=== PATIENT | male | born 1940 | race Caucasian/White ===

== ENCOUNTER 2017-10-10 14:32 | Inpatient (IN) | payer MEDICARE, MEDICAID ==
[~2017-10-10] VITALS: Ht 170.2 cm; Wt 59.2 kg
[2017-10-10] MEDS ORDERED: ASPIRIN 81 MG TABLET CHEW ONE (15:24)
[2017-10-10] MEDS ORDERED: ALBUTEROL/IPRATROPIUM 2.5MG/0.5MG, 3 ML ONE ×2 (15:30→22:35)
[2017-10-10] MEDS ORDERED: ALBUTEROL/IPRATROPIUM 2.5MG/0.5MG, 3 ML NPPB ONE (15:30)
[2017-10-10] MEDS ORDERED: ASPIRIN 81 MG TABLET CHEW PO ONE (15:30)
[2017-10-10] MEDS ORDERED: SODIUM CHLORIDE FLUSH 10ML SYR IVF ONE (15:30)
[2017-10-10 15:46] LABS: BASOPHILS # (AUTO) 0.05 x10^3/uL (0-0.1); BASOPHILS % (AUTO) 1 % (0-1); EOSINOPHILS % (AUTO) 2 % (1-7); LYMPHOCYTES # (AUTO) 2.98 x10^3/uL (1-3.4); LYMPHOCYTES % (AUTO) 29 % (22-44); MD NO; MEAN CORPUSCULAR HEMOGLOBIN 29.3 pg (27.5-34.5); MEAN CORPUSCULAR HGB CONC 32.7 g/dL (33.2-36.2); MEAN CORPUSCULAR VOLUME 89.5 fL (81-97); MEAN PLATELET VOLUME 9.1 fL (7.4-10.4); MONOCYTES # (AUTO) 0.52 x10^3/uL (0.2-0.8); MONOCYTES % (AUTO) 5 % (2-9); NEUTROPHILS # (AUTO) 6.72 x10^3/uL (1.8-6.8); NEUTROPHILS % (AUTO) 64 % (42-75); PLATELET COUNT 258 x10^3/uL (130-400); RED BLOOD COUNT 6.02 x10^6/uL (4.38-5.82); RED CELL DISTRIBUTION WIDTH 14.9 % (9.4-14.8)
[2017-10-10 15:56] LABS: ALBUMIN 3.7 g/dL (3.4-5.0); ANION GAP 3 mmol/L (5-15); CALCIUM 8.6 mg/dL (8.5-10.1); CHLORIDE 107 mmol/L (98-107)
[2017-10-10] MEDS ORDERED: methylPREDNISolone SOD SUCC 125 MG/2 ML IVP ONE (16:00)
[2017-10-10 16:03] LABS: CREATININE 0.88 mg/dL (0.7-1.3); TROPONIN I < 0.015 ng/mL (0.000-0.045)
[2017-10-10] MEDS ORDERED: methylPREDNISolone SOD SUCC 125 MG/2 ML ONE (16:09)
[2017-10-10] MEDS ORDERED: CEFTRIAXONE PMX 1GM/50ML 50 ML ONE (17:24)
[2017-10-10] MEDS ORDERED: CEFTRIAXONE PMX 1GM/50ML 50 ML IVPB ONE (17:30)
[2017-10-10] MEDS ORDERED: AZITHROMYCIN 500 MG in SODIUM CHLORIDE 0.9% 250 ML IVPB ONE (17:30)
[2017-10-10] MEDS ORDERED: SODIUM CHLORIDE FLUSH 10ML SYR IVF PRN (18:00)
[2017-10-10] MEDS: AZITHROMYCIN 500 MG in SODIUM CHLORIDE 0.9% 250 ML IV SCH (18:30)
[2017-10-10] MEDS ORDERED: GUAIFENESIN/DM 200-20MG, 10ML UDC PO PRN (18:30)
[2017-10-10] MEDS: methylPREDNISolone SOD SUCC 125 MG/2 ML IVPush SCH (18:30)
[2017-10-10] MEDS ORDERED: ONDANSETRON 2MG/ML, 2ML IVPush PRN (18:30)
[2017-10-10] MEDS ORDERED: POLYETHYLENE GLYCOL 17 GM PACKET PO PRN (18:30)
[2017-10-10] MEDS ORDERED: hydrALAzine 20 MG/ML, 1ML IVPush PRN (18:30)
[2017-10-10] MEDS: CEFTRIAXONE PMX 1GM/50ML 50 ML IV SCH (18:30)
[2017-10-10] MEDS ORDERED: BISACODYL 10 MG SUPP PR PRN (18:30)
[2017-10-10] MEDS ORDERED: NICOTINE 21 MG/24 HR PATCH.TD24 ONE (19:50)
[2017-10-10] MEDS ORDERED: HEPARIN 5,000 UNITS/ML, 1ML ONE (19:50)
[2017-10-10] MEDS: HEPARIN 5,000 UNITS/ML, 1ML SQ SCH (19:52)
[2017-10-10] MEDS: NICOTINE 21 MG/24 HR PATCH.TD24 TD SCH (19:53)
[2017-10-10] MEDS ORDERED: ALBUTEROL/IPRATROPIUM 2.5MG/0.5MG, 3 ML NPPB PRN (20:00)
[2017-10-10] MEDS ORDERED: ALBUTEROL/IPRATROPIUM 2.5MG/0.5MG, 3 ML NPPB SCH (20:00)
[2017-10-10] MEDS: SODIUM CHLORIDE FLUSH 10ML SYR IVF SCH (20:41)
[2017-10-10] MEDS: ALBUTEROL/IPRATROPIUM 2.5MG/0.5MG, 3 ML NPPB SCH (22:00)
[2017-10-10 23:55] VITALS: BP 168/82
[2017-10-11] MEDS: methylPREDNISolone SOD SUCC 125 MG/2 ML IVPush SCH (01:01)
[2017-10-11] MEDS ORDERED: ALBU18HF INH (02:57)
[2017-10-11] MEDS ORDERED: BUDE10.2 INH (02:58)
[2017-10-11] MEDS: HEPARIN 5,000 UNITS/ML, 1ML SQ SCH ×3 (04:13→21:42)
[2017-10-11 04:15] VITALS: BP 148/77
[2017-10-11 04:50] LABS: BASOPHILS # (AUTO) 0.02 x10^3/uL (0-0.1); BASOPHILS % (AUTO) 0 % (0-1); EOSINOPHILS % (AUTO) 0 % (1-7); LYMPHOCYTES # (AUTO) 1.41 x10^3/uL (1-3.4); LYMPHOCYTES % (AUTO) 16 % (22-44); MD NO; MEAN CORPUSCULAR HEMOGLOBIN 29.6 pg (27.5-34.5); MEAN CORPUSCULAR HGB CONC 33.4 g/dL (33.2-36.2); MEAN CORPUSCULAR VOLUME 88.8 fL (81-97); MEAN PLATELET VOLUME 9.1 fL (7.4-10.4); MONOCYTES # (AUTO) 0.05 x10^3/uL (0.2-0.8); MONOCYTES % (AUTO) 1 % (2-9); NEUTROPHILS # (AUTO) 7.55 x10^3/uL (1.8-6.8); NEUTROPHILS % (AUTO) 84 % (42-75); PLATELET COUNT 288 x10^3/uL (130-400); RED BLOOD COUNT 5.66 x10^6/uL (4.38-5.82); RED CELL DISTRIBUTION WIDTH 14.6 % (9.4-14.8)
[2017-10-11 05:02] LABS: CHLORIDE 106 mmol/L (98-107)
[2017-10-11 05:07] LABS: ALANINE AMINOTRANSFERASE 15 U/L (12-78); ALBUMIN 3.3 g/dL (3.4-5.0); ALKALINE PHOSPHATASE 97 U/L (45-117); ANION GAP 6 mmol/L (5-15); BILIRUBIN,TOTAL 0.3 mg/dL (0.2-1.0); CALCIUM 8.8 mg/dL (8.5-10.1); CREATININE 0.86 mg/dL (0.7-1.3); TOTAL PROTEIN 7.1 g/dL (6.4-8.2)
[2017-10-11] MEDS: ALBUTEROL/IPRATROPIUM 2.5MG/0.5MG, 3 ML NPPB SCH ×5 (06:47→23:20)
[2017-10-11 07:20] VITALS: BP 156/84
[2017-10-11] MEDS: SODIUM CHLORIDE FLUSH 10ML SYR IVF SCH ×2 (09:59→21:42)
[2017-10-11] MEDS: SENNA/DOCUSATE TABLET PO SCH (10:00)
[2017-10-11] MEDS: FLUTICASONE/VILANTEROL 100-25MCG/INH INH SCH (10:00)
[2017-10-11] MEDS: ACETAMINOPHEN 325 MG TABLET PO PRN (10:05)
[2017-10-11 15:07] VITALS: BP 171/69
[2017-10-11] MEDS: CEFTRIAXONE PMX 1GM/50ML 50 ML IV SCH (18:04)
[2017-10-11] MEDS: AZITHROMYCIN 500 MG in SODIUM CHLORIDE 0.9% 250 ML IV SCH (18:56)
[2017-10-11] MEDS: NICOTINE 21 MG/24 HR PATCH.TD24 TD SCH (18:57)
[2017-10-11 21:30] VITALS: BP 166/76
[2017-10-12 01:40] VITALS: BP 152/85
[2017-10-12] MEDS: DIPHENHYDRAMINE 50 MG CAPSULE PO PRN ×2 (01:46→21:11)
[2017-10-12] MEDS: HEPARIN 5,000 UNITS/ML, 1ML SQ SCH ×3 (05:33→21:12)
[2017-10-12] MEDS: ALBUTEROL/IPRATROPIUM 2.5MG/0.5MG, 3 ML NPPB SCH ×3 (07:50→20:20)
[2017-10-12 08:15] VITALS: BP 162/60
[2017-10-12] MEDS: SENNA/DOCUSATE TABLET PO SCH (08:46)
[2017-10-12] MEDS: SODIUM CHLORIDE FLUSH 10ML SYR IVF SCH ×2 (08:46→21:00)
[2017-10-12 14:17] VITALS: BP 146/72
[2017-10-12] MEDS ORDERED: AZIT500T5 PO (14:27)
[2017-10-12] MEDS ORDERED: ACET325T14 PO (14:27)
[2017-10-12] MEDS ORDERED: GUAI200T3 PO (14:27)
[2017-10-12] MEDS ORDERED: CEFD300C37 PO (14:27)
[2017-10-12] MEDS ORDERED: PRED20TA PO (14:27)
[2017-10-12] MEDS: FLUTICASONE/VILANTEROL 100-25MCG/INH INH SCH (16:44)
[2017-10-12 18:30] VITALS: BP 159/69
[2017-10-12] MEDS: NICOTINE 21 MG/24 HR PATCH.TD24 TD SCH (18:30)
[2017-10-12] MEDS: CEFDINIR 300 MG CAPSULE PO SCH (21:12)
[2017-10-13 00:26] VITALS: BP 161/69
[2017-10-13] MEDS: ALBUTEROL/IPRATROPIUM 2.5MG/0.5MG, 3 ML NPPB SCH ×6 (01:00→23:02)
[2017-10-13] MEDS: HEPARIN 5,000 UNITS/ML, 1ML SQ SCH ×3 (05:12→21:50)
[2017-10-13 07:31] VITALS: BP 151/73
[2017-10-13] MEDS: SODIUM CHLORIDE FLUSH 10ML SYR IVF SCH ×2 (08:21→21:48)
[2017-10-13] MEDS: SENNA/DOCUSATE TABLET PO SCH (08:21)
[2017-10-13] MEDS: AZITHROMYCIN 500 MG TABLET PO SCH (08:21)
[2017-10-13] MEDS: FLUTICASONE/VILANTEROL 100-25MCG/INH INH SCH (08:21)
[2017-10-13] MEDS: CEFDINIR 300 MG CAPSULE PO SCH ×2 (08:21→21:49)
[2017-10-13 13:24] VITALS: BP 178/66
[2017-10-13] MEDS: NICOTINE 21 MG/24 HR PATCH.TD24 TD SCH (18:30)
[2017-10-13 19:04] VITALS: BP 165/80
[2017-10-14 00:59] VITALS: BP 156/63
[2017-10-14] MEDS: HEPARIN 5,000 UNITS/ML, 1ML SQ SCH ×3 (05:33→21:50)
[2017-10-14] MEDS: ACETAMINOPHEN 325 MG TABLET PO PRN ×2 (05:38→21:50)
[2017-10-14] MEDS: ALBUTEROL/IPRATROPIUM 2.5MG/0.5MG, 3 ML NPPB SCH ×4 (06:00→19:36)
[2017-10-14 07:09] VITALS: BP 184/84
[2017-10-14] MEDS: SENNA/DOCUSATE TABLET PO SCH (07:45)
[2017-10-14] MEDS: FLUTICASONE/VILANTEROL 100-25MCG/INH INH SCH (07:46)
[2017-10-14] MEDS: CEFDINIR 300 MG CAPSULE PO SCH (07:46)
[2017-10-14] MEDS: SODIUM CHLORIDE FLUSH 10ML SYR IVF SCH ×2 (07:46→21:51)
[2017-10-14] MEDS: AZITHROMYCIN 500 MG TABLET PO SCH (07:47)
[2017-10-14 12:52] VITALS: BP 158/71
[2017-10-14] MEDS: CEFTAZIDIME 2,000 MG in DEXTROSE 5% 50 ML IV SCH (16:54)
[2017-10-14] MEDS: NICOTINE 21 MG/24 HR PATCH.TD24 TD SCH (19:25)
[2017-10-14 20:47] VITALS: BP 169/82
[2017-10-15 00:47] VITALS: BP 143/64
[2017-10-15] MEDS: CEFTAZIDIME 2,000 MG in DEXTROSE 5% 50 ML IV SCH ×3 (00:51→16:02)
[2017-10-15 04:48] LABS: ANION GAP 4 mmol/L (5-15); CALCIUM 8.5 mg/dL (8.5-10.1); CHLORIDE 104 mmol/L (98-107); CREATININE 0.76 mg/dL (0.7-1.3)
[2017-10-15 04:59] LABS: BASOPHILS # (AUTO) 0.05 x10^3/uL (0-0.1); BASOPHILS % (AUTO) 0 % (0-1); EOSINOPHILS # (AUTO) 0.09 x10^3/uL (0-0.4); EOSINOPHILS % (AUTO) 1 % (1-7); LYMPHOCYTES # (AUTO) 3.15 x10^3/uL (1-3.4); LYMPHOCYTES % (AUTO) 26 % (22-44); MD NO; MEAN CORPUSCULAR HEMOGLOBIN 29.5 pg (27.5-34.5); MEAN CORPUSCULAR HGB CONC 33.1 g/dL (33.2-36.2); MEAN CORPUSCULAR VOLUME 89.2 fL (81-97); MEAN PLATELET VOLUME 8.9 fL (7.4-10.4); MONOCYTES # (AUTO) 0.98 x10^3/uL (0.2-0.8); MONOCYTES % (AUTO) 8 % (2-9); NEUTROPHILS # (AUTO) 8.06 x10^3/uL (1.8-6.8); NEUTROPHILS % (AUTO) 65 % (42-75); PLATELET COUNT 269 x10^3/uL (130-400); RED BLOOD COUNT 5.51 x10^6/uL (4.38-5.82); RED CELL DISTRIBUTION WIDTH 14.9 % (9.4-14.8)
[2017-10-15] MEDS: ALBUTEROL/IPRATROPIUM 2.5MG/0.5MG, 3 ML NPPB SCH ×4 (06:00→19:49)
[2017-10-15] MEDS: HEPARIN 5,000 UNITS/ML, 1ML SQ SCH ×3 (06:33→22:26)
[2017-10-15 06:40] VITALS: BP 142/83
[2017-10-15] MEDS: SENNA/DOCUSATE TABLET PO SCH (08:10)
[2017-10-15] MEDS: AZITHROMYCIN 500 MG TABLET PO SCH (08:10)
[2017-10-15] MEDS: FLUTICASONE/VILANTEROL 100-25MCG/INH INH SCH (08:10)
[2017-10-15] MEDS: BENAZEPRIL 10 MG TABLET PO SCH (08:10)
[2017-10-15] MEDS: SODIUM CHLORIDE FLUSH 10ML SYR IVF SCH ×2 (08:11→22:26)
[2017-10-15 14:03] VITALS: BP 109/64
[2017-10-15] MEDS: NICOTINE 21 MG/24 HR PATCH.TD24 TD SCH (16:02)
[2017-10-15 18:38] VITALS: BP 133/61
[2017-10-15] MEDS: ACETAMINOPHEN 325 MG TABLET PO PRN (19:27)
[2017-10-16] MEDS: CEFTAZIDIME 2,000 MG in DEXTROSE 5% 50 ML IV SCH ×2 (01:07→09:29)
[2017-10-16 01:12] VITALS: BP 131/69
[2017-10-16] MEDS: HEPARIN 5,000 UNITS/ML, 1ML SQ SCH (06:25)
[2017-10-16 07:19] VITALS: BP 137/75
[2017-10-16] MEDS: ALBUTEROL/IPRATROPIUM 2.5MG/0.5MG, 3 ML NPPB SCH ×2 (07:35→11:50)
[2017-10-16] MEDS: SODIUM CHLORIDE FLUSH 10ML SYR IVF SCH (09:00)
[2017-10-16] MEDS: FLUTICASONE/VILANTEROL 100-25MCG/INH INH SCH (09:29)
[2017-10-16] MEDS: SENNA/DOCUSATE TABLET PO SCH (09:30)
[2017-10-16] MEDS: AZITHROMYCIN 500 MG TABLET PO SCH (09:30)
[2017-10-16] MEDS: BENAZEPRIL 10 MG TABLET PO SCH (09:30)
[2017-10-16] MEDS ORDERED: CEFTAZIDIME 2,000 MG in SODIUM CHLORIDE 0.9% 50 ML IV SCH (17:00)
== END 2017-10-16 14:01 | disposition home or self-care (01) | DRG 177 ==
LOC: ED 17:46 → EDIP 17:47 → ED 17:49 → 3NW 23:23
PROVIDERS: ADMIT Family Medicine; ATTEND Internal Medicine
DX: J69.0 Pneumonitis due to inhalation of food and vomit (principal); J96.21 Acute and chronic respiratory failure with hypoxia; E87.2 Acidosis; E44.1 Mild protein-calorie malnutrition; D75.1 Secondary polycythemia; F13.20 Sedative, hypnotic or anxiolytic dependence, uncomplicated; J44.0 Chronic obstructive pulmonary disease with (acute) lower respiratory infection; J44.1 Chronic obstructive pulmonary disease with (acute) exacerbation; R45.851 Suicidal ideations; J15.1 Pneumonia due to Pseudomonas; I27.20 Pulmonary hypertension, unspecified; Z59.0 Homelessness; E78.5 Hyperlipidemia, unspecified; F17.200 Nicotine dependence, unspecified, uncomplicated; F10.10 Alcohol abuse, uncomplicated; D72.829 Elevated white blood cell count, unspecified; I10 Essential (primary) hypertension; F12.90 Cannabis use, unspecified, uncomplicated; Z66 Do not resuscitate; Z79.82 Long term (current) use of aspirin; Z82.49 Family history of ischemic heart disease and other diseases of the circulatory system; Z91.5 Personal history of self-harm; Z99.81 Dependence on supplemental oxygen; Z90.49 Acquired absence of other specified parts of digestive tract
CPT/HCPCS: 36415; 71046; 80048; 80053; 82040; 83605; 84484; 85025; 87040; 87070; 87077; 87186; 87205; 93005; 94640; 96365; 96367; 96375; J0456; J0696; J1644; J7620; J0360; J2930; J7050; J7512

== ENCOUNTER 2017-11-08 11:56 | Emergency (ER) | payer MEDICARE, MEDICAID ==
[~2017-11-08] VITALS: Ht 170.2 cm; Wt 55.5 kg
[~2017-11-08 11:56] MED LIST: ACET325T14 PO; ALBU18HF INH; AZIT500T5 PO; BUDE10.2 INH; CEFD300C37 PO; GUAI200T3 PO; PRED20TA PO
[2017-11-08] MEDS ORDERED: ALBUTEROL/IPRATROPIUM 2.5MG/0.5MG, 3 ML ONE (13:25)
[2017-11-08] MEDS ORDERED: ALBUTEROL/IPRATROPIUM 2.5MG/0.5MG, 3 ML NPPB ONE (13:30)
[2017-11-08 13:44] LABS: BASOPHILS # (AUTO) 0.01 x10^3/uL (0-0.1); BASOPHILS % (AUTO) 0 % (0-1); EOSINOPHILS # (AUTO) 0.06 x10^3/uL (0-0.4); EOSINOPHILS % (AUTO) 1 % (1-7); LYMPHOCYTES # (AUTO) 1.88 x10^3/uL (1-3.4); LYMPHOCYTES % (AUTO) 20 % (22-44); MD NO; MEAN CORPUSCULAR HEMOGLOBIN 29.3 pg (27.5-34.5); MEAN CORPUSCULAR HGB CONC 32.6 g/dL (33.2-36.2); MEAN CORPUSCULAR VOLUME 89.8 fL (81-97); MEAN PLATELET VOLUME 9.2 fL (7.4-10.4); MONOCYTES # (AUTO) 0.66 x10^3/uL (0.2-0.8); MONOCYTES % (AUTO) 7 % (2-9); NEUTROPHILS % (AUTO) 72 % (42-75); PLATELET COUNT 268 x10^3/uL (130-400); RED BLOOD COUNT 5.52 x10^6/uL (4.38-5.82); RED CELL DISTRIBUTION WIDTH 15.1 % (9.4-14.8)
[2017-11-08 13:56] LABS: ALBUMIN 3.7 g/dL (3.4-5.0); ANION GAP 6 mmol/L (5-15); CALCIUM 8.5 mg/dL (8.5-10.1); CHLORIDE 107 mmol/L (98-107); CREATININE 0.94 mg/dL (0.7-1.3)
[2017-11-08 14:28] VITALS: BP 126/86
== END 2017-11-08 14:53 | disposition home or self-care (01) ==
LOC: ED 14:25
DX: J44.0 Chronic obstructive pulmonary disease with (acute) lower respiratory infection (principal)
CPT/HCPCS: 36415; 71046; 80048; 82040; 85025; 85379; 93005; 94640; 99285; J7620